=== PATIENT | male | born 1980 | race Caucasian/White ===

== ENCOUNTER → 2017-11-21 | Day surgery (SDC) | payer BC ==
[~2017-11-21] MED LIST: ALPRAZolam 0.5 MG TAB PO ONE; HYDROmorphone 2 MG/ML 1 ML SYRINGE IVP PRN
[2017-11-21 09:27] VITALS: RESP 20; TEMP 97.6
[2017-11-21 09:34] LABS: Mean Platelet Volume 8.1; Platelet Count 228 k/uL (150-450)
[2017-11-21 09:52] LABS: INR 1.1 (<1.2); Partial Thromboplastin Time 23.1 sec (22.0-30.0); Prothrombin Time 10.3 sec (9.0-12.0)
[2017-11-21 10:34] VITALS: PULSE 71
--- NOTE | 2017-11-21 11:07 | US ---
EXAMINATION TYPE: US biopsy liver DATE OF EXAM: 11/21/2017 HISTORY: Elevated liver function tests. PROCEDURE: Maximal barrier technique was utilized. After informed consent, the skin overlying a suit able path to the liver was localized using ultrasound and the right lobe, the skin was prepped and d raped. Ultrasound was utilized with sterile technique. Lidocaine was used for local anesthesia. A sk in tr made with a scalpel. Under direct ultrasound guidance, an 18-gauge needle was advanced into the right lobe of the liver and core biopsy obtained. Hemostasis was achieved. There was no immedia te complication and patient remained in stable condition. Specimen submitted in formalin to Patholog y. IMPRESSION: STATUS POST ULTRASOUND GUIDED CORE BIOPSY OF THE RIGHT LOBE OF THE LIVER, PATHOLOGY PENDI NG. PERFORMED BY THE UNDERSIGNED.
[2017-11-21 15:56] VITALS: BP 107/60
== END ==
LOC: RADPROMAIN 09:05
PROVIDERS: ATTEND Internal Medicine Gastroenterology
DX: E83.110 Hereditary hemochromatosis (principal)
CPT/HCPCS: 36415; 47000; 76942; 85049; 85610; 85730; 88307; 88313

== ENCOUNTER → 2018-09-19 | Outpatient (CLI) | payer BC ==
--- NOTE | 2018-09-19 15:48 | CT ---
CT brain w con HISTORY: Migraine headaches Helical acquisition obtained through the brain following 100 cc Isovue-300 IV. There is no hemorrhage or hydrocephalus. No abnormal enhancement. Brain density is normal. Calvarium is intact. Paranasal sinuses are remarkable for possible mucus retention cyst in the right maxillary sinus, and mastoid air cells as visualized are normal. IMPRESSION: Normal contrast-enhanced brain CT.
== END | disposition home or self-care (01) ==
LOC: RADCTMAIN 14:43
PROVIDERS: ATTEND Nurse Practitioner Adult Health
DX: G43.909 Migraine, unspecified, not intractable, without status migrainosus (principal)
CPT/HCPCS: 70460; Q9967

== ENCOUNTER → 2018-09-20 | Outpatient (CLI) | payer BC ==
--- NOTE | 2018-09-20 16:03 | CT ---
EXAMINATION TYPE: CT angio COW [place] DATE OF EXAM: 09/20/2018 COMPARISON: None. HISTORY: [facility] x3 weeks CT DLP: 1106 mGycm Automated Exposure Control for Dose Reduction was Utilized. TECHNIQUE: CTA scan of the head is performed with IV contrast.,patient injected with 100 mL of Isovue 370. Three-D reconstructed images are created on independent workstation. FINDINGS: There is codominant vertebral basilar system. Vertebral arteries are patent to the basilar junction. There is no significant focal stenosis or aneurysmal change in posterior circulation. There is patent left posterior communicating artery. There is hypoplastic right posterior communicating ar renan. Images of the anterior circulation show patent anterior cerebral artery. There is no significant foca l stenosis or aneurysmal change identified IMPRESSION: No aneurysmal change at level of [place].
== END | disposition home or self-care (01) ==
LOC: RADCTMAIN 15:22
PROVIDERS: ATTEND Nurse Practitioner Adult Health
DX: G43.909 Migraine, unspecified, not intractable, without status migrainosus (principal)
CPT/HCPCS: 70496; Q9967

== ENCOUNTER → 2019-02-13 | Outpatient (CLI) | payer BC ==
[~2019-02-13] MED LIST changes: -ALPRAZolam 0.5 MG TAB PO ONE; -HYDROmorphone 2 MG/ML 1 ML SYRINGE IVP PRN; +SODIUM CHLORIDE 0.9% 500 ML 500 ML in EMPTY BAG 1 BAG IV PRN
[2019-02-13 13:15] VITALS: RESP 16; TEMP 98
[2019-02-13 13:48] LABS: HCT 44.6 % (39.0-53.0); HGB 15.5 gm/dL (13.0-17.5); MCH 31.8 pg (25.0-35.0); MCHC 34.7 g/dL (31.0-37.0); MCV 91.8 fL (80.0-100.0); Mean Platelet Volume 7.6; Platelet Count 218 k/uL (150-450); RBC 4.86 m/uL (4.30-5.90); RDW 13.6 % (11.5-15.5); WBC 4.9 k/uL (3.8-10.6)
[2019-02-13 14:27] VITALS: BP 128/86; PULSE 79
[2019-02-13 19:33] LABS: Iron Saturation 19.81 (15.00-50.00)
== END ==
LOC: PROCWHC3 13:01
PROVIDERS: ATTEND Internal Medicine Gastroenterology
DX: E83.110 Hereditary hemochromatosis (principal)
CPT/HCPCS: 36415; 82728; 83540; 83550; 85027; 99195

== ENCOUNTER → 2019-08-23 | Outpatient (CLI) | payer BC ==
[2019-08-23 14:12] VITALS: RESP 16; TEMP 98.4
[2019-08-23 14:35] LABS: HCT 45.2 % (39.0-53.0); HGB 15.5 gm/dL (13.0-17.5); MCH 32.2 pg (25.0-35.0); MCHC 34.3 g/dL (31.0-37.0); Mean Platelet Volume 7.2; Platelet Count 217 k/uL (150-450); RBC 4.81 m/uL (4.30-5.90); RDW 13.3 % (11.5-15.5); WBC 7.3 k/uL (3.8-10.6)
[2019-08-23 15:10] VITALS: BP 123/75; PULSE 90
[2019-08-23 19:00] LABS: Iron Saturation 25.25 (15.00-50.00)
[2019-08-23 19:08] LABS: Ferritin 31.7 ng/mL (22.0-322.0)
== END | disposition home or self-care (01) ==
LOC: PROCWHC3 13:56
PROVIDERS: ATTEND Internal Medicine Gastroenterology
DX: E83.110 Hereditary hemochromatosis (principal)
CPT/HCPCS: 36415; 82728; 83540; 83550; 85027; 99195

== ENCOUNTER → 2019-10-16 | Outpatient (CLI) | payer BC ==
[2019-10-16 13:58] VITALS: BP 154/98; PULSE 84; RESP 18; TEMP 97.4
[2019-10-16 14:20] LABS: HCT 42.4 % (39.0-53.0); HGB 15.1 gm/dL (13.0-17.5); MCHC 35.5 g/dL (31.0-37.0); MCV 92.8 fL (80.0-100.0); Mean Platelet Volume 6.6; Platelet Count 224 k/uL (150-450); RBC 4.57 m/uL (4.30-5.90); RDW 12.8 % (11.5-15.5); WBC 11.7 k/uL (3.8-10.6)
[2019-10-16 23:36] LABS: % Iron Saturation 28.43 (15.00-50.00)
== END | disposition home or self-care (01) ==
LOC: PROCWHC3 13:38
PROVIDERS: ATTEND Internal Medicine Gastroenterology
DX: E83.110 Hereditary hemochromatosis (principal)
CPT/HCPCS: 36415; 82728; 83540; 83550; 85027; 99195

== ENCOUNTER → 2020-04-11 | Outpatient (CLI) | payer BC ==
[2020-04-11 09:55] VITALS: RESP 18; TEMP 97.8
[2020-04-11 10:09] LABS: HCT 47.1 % (39.0-53.0); HGB 16.8 gm/dL (13.0-17.5); MCH 32.4 pg (25.0-35.0); MCHC 35.7 g/dL (31.0-37.0); MCV 90.8 fL (80.0-100.0); Platelet Count 210 k/uL (150-450); RBC 5.19 m/uL (4.30-5.90); RDW 13.8 % (11.5-15.5); WBC 5.6 k/uL (3.8-10.6)
[2020-04-11 10:44] VITALS: BP 135/95; PULSE 84
== END | disposition home or self-care (01) ==
LOC: PROCWHC3 09:32
PROVIDERS: ATTEND Physician Assistant
DX: E83.110 Hereditary hemochromatosis (principal)
CPT/HCPCS: 36415; 85027; 99195

== ENCOUNTER → 2020-07-04 | Outpatient (CLI) | payer BC ==
[2020-07-04 08:01] LABS: Basophils % (A) 1 %; Eosinophils # (A) 0.2 k/uL (0-0.7); Eosinophils % (A) 3 %; HCT 47.7 % (39.0-53.0); HGB 16.3 gm/dL (13.0-17.5); Lymphocytes # (A) 1.6 k/uL (1.0-4.8); Lymphocytes % (A) 31 %; MCH 31.9 pg (25.0-35.0); MCHC 34.3 g/dL (31.0-37.0); Mean Platelet Volume 8.1; Monocytes # (A) 0.2 k/uL (0-1.0); Monocytes % (A) 4 %; Neutrophils # (A) 2.9 k/uL (1.3-7.7); Neutrophils % (A) 59 %; Platelet Count 200 k/uL (150-450); RBC 5.13 m/uL (4.30-5.90); RDW 12.9 % (11.5-15.5)
[2020-07-04 08:03] VITALS: BP 166/92; PULSE 73; RESP 16; TEMP 97.8
[2020-07-04 11:26] LABS: % Iron Saturation 34.17 (15.00-50.00)
[2020-07-04 11:33] LABS: Ferritin 26.6 ng/mL (22.0-322.0)
== END | disposition home or self-care (01) ==
LOC: PROCWHC3 07:40
PROVIDERS: ATTEND Physician Assistant
DX: E83.110 Hereditary hemochromatosis (principal)
CPT/HCPCS: 36415; 82728; 83540; 83550; 85025; 99195

== ENCOUNTER → 2020-12-24 | Outpatient (CLI) | payer BC, OTHER ==
[2020-12-24 09:25] VITALS: PULSE 68; RESP 16; TEMP 97.6
[2020-12-24 09:33] LABS: HCT 47.5 % (39.0-53.0); HGB 16.6 gm/dL (13.0-17.5); MCH 33.3 pg (25.0-35.0); MCV 95.1 fL (80.0-100.0); Mean Platelet Volume 7.9; Platelet Count 168 k/uL (150-450); RBC 4.99 m/uL (4.30-5.90); RDW 13.5 % (11.5-15.5); WBC 5.3 k/uL (3.8-10.6)
[2020-12-24 10:11] VITALS: BP 125/91
[2020-12-24 15:20] LABS: % Iron Saturation 50.8 (15.00-50.00)
[2020-12-24 15:29] LABS: Ferritin 43.5 ng/mL (22.0-322.0)
== END | disposition home or self-care (01) ==
LOC: PROCWHC3 09:05
PROVIDERS: ATTEND Internal Medicine Gastroenterology
DX: E83.110 Hereditary hemochromatosis (principal)
CPT/HCPCS: 36415; 82728; 83540; 83550; 85027; 99195

== ENCOUNTER → 2021-03-10 | Outpatient (CLI) | payer OTHER ==
[2021-03-10 14:45] LABS: Basophils % (A) 0 %; Eosinophils # (A) 0.1 k/uL (0-0.7); Eosinophils % (A) 2 %; HCT 46.3 % (39.0-53.0); HGB 16.2 gm/dL (13.0-17.5); Lymphocytes # (A) 1.2 k/uL (1.0-4.8); Lymphocytes % (A) 22 %; MCH 33.7 pg (25.0-35.0); MCV 96.4 fL (80.0-100.0); Monocytes # (A) 0.3 k/uL (0-1.0); Monocytes % (A) 5 %; Neutrophils # (A) 3.9 k/uL (1.3-7.7); Neutrophils % (A) 70 %; Platelet Count 179 k/uL (150-450); RDW 12.3 % (11.5-15.5); WBC 5.6 k/uL (3.8-10.6)
[2021-03-10 14:53] LABS: ALT 40 U/L (4-49); AST 38 U/L (17-59); African American GFR (CKD) >90 (>60 ml/min/1.73 sqM); Albumin 4.4 g/dL (3.5-5.0); Albumin/Globulin Ratio 1.8; Alkaline Phosphatase 60 U/L (38-126); Anion Gap 5 mmol/L; Blood Urea Nitrogen 16 mg/dL (9-20); Calcium 9.4 mg/dL (8.4-10.2); Carbon Dioxide 28 mmol/L (22-30); Chloride 107 mmol/L (98-107); Globulin 2.5 g/dL; Glucose 91 mg/dL (74-99); Non-African American GFR(CKD) >90 (>60 ml/min/1.73 sqM); Potassium 4.2 mmol/L (3.5-5.1); Sodium 140 mmol/L (137-145); Total Bilirubin 0.6 mg/dL (0.2-1.3); Total Protein 6.9 g/dL (6.3-8.2)
[2021-03-10 15:14] LABS: Creatine Kinase MB 6.5 ng/mL (0.0-2.4); Troponin I <0.012 ng/mL (0.000-0.034)
[2021-03-10 16:04] LABS: Erythrocyte Sedimentation Rate 1 mm/hr (0-15)
[2021-03-11 14:47] LABS: % Iron Saturation 65.36 (15.00-50.00); Iron 217 ug/dL (65-175); Total Iron Binding Capacity 332 ug/dL (228-460)
[2021-03-11 14:49] LABS: Ferritin 32.9 ng/mL (22.0-322.0)
== END | disposition home or self-care (01) ==
LOC: LABWHC1 14:00
PROVIDERS: ATTEND Nurse Practitioner Adult Health
DX: R07.9 Chest pain, unspecified (principal)
CPT/HCPCS: 36415; 80053; 82553; 82728; 83540; 83550; 84484; 85025; 85652; 86141

== ENCOUNTER → 2021-04-08 | Outpatient (CLI) | payer OTHER ==
--- NOTE | 2021-04-09 20:01 | ECHOF ---
Referral Reason:R00.2 Palpitations MEASUREMENTS -------- HEIGHT: 182.9 cm WEIGHT: 90.7 kg BP: 132/82 IVSd: 1.2 cm (0.6 - 1.1) LVIDd: 4.4 cm (3.9 - 5.3) LVPWd: 1.1 cm (0.6 - 1.1) EDV(Teich): 88 ml IVSs: 1.8 cm LVIDs: 2.9 cm LVPWs: 1.6 cm %IVS Thck: 53 % ESV(Teich): 33 ml EF(Teich): 62 % %FS: 33 % SV(Teich): 55 ml LA Diam: 3.0 cm (2.7 - 3.8) RVIDd: 2.9 cm (< 3.3) LALs A4C: 5.2 cm LAAs A4C: 17.2 cm LAESV A-L A4C: 49 ml LAESV MOD A4C: 47 ml LALs A2C: 5.7 cm LAAs A2C: 18.7 cm LAESV A-L A2C: 52 ml LAESV MOD A2C: 49 ml LAESV(A-L): 53 ml LAESV Index (A-L): 24.82 ml/m Ao Diam: 3.9 cm (2.0 - 3.7) AV Cusp: 2.7 cm (1.5 - 2.6) EPSS: 0.6 cm MV E Maxim: 1.00 m/s MV DecT: 237 ms MV Dec [place]: 4.2 m/s MV A Maxim: 0.83 m/s MV E/A Ratio: 1.21 MV PHT: 69 ms AV Vmax: 1.31 m/s AV maxP.82 mmHg TR Vmax: 2.64 m/s TR maxP.77 mmHg RAP: 5.00 mmHg RVSP: 32.77 mmHg MV EF SLOPE: 141.62 mm/s (70 - 150) MV EXCURSION: 27.03 mm (> 18.000) FINDINGS -------- Sinus rhythm. This was a technically good study. The left ventricular size is normal. There is borderline concentric left ventricular hypertrophy. Overall left ventricular systolic function is normal with, an EF between 60 - 65 %. The right ventricle is normal in size. Normal LA size by volume 22+/-6 ml/m2. The right atrium is normal in size. Interatrial and interventricular septum intact. The aortic valve is trileaflet and appears structurally normal. The mitral valve is normal. Mild tricuspid regurgitation present. Right ventricular systolic pressure is normal at < 35 mmHg. Trace/mild (physiologic) pulmonic regurgitation. The aortic root is dilated measuring 3.9cm. Normal inferior vena cava with normal inspiratory collapse consistent with estimated right atrial pre ssure of 5 mmHg. The inferior vena cava is mildly dilated. There is no pericardial effusion. CONCLUSIONS -------- 1. The left ventricular size is normal. 2. There is borderline concentric left ventricular hypertrophy. 3. Overall left ventricular systolic function is normal with, an EF between 60 - 65 %. 4. The aortic valve is trileaflet and appears structurally normal. 5. Mild tricuspid regurgitation present. 6. Trace/mild (physiologic) pulmonic regurgitation. 7. The aortic root is dilated measuring 3.9cm. 8. Normal inferior vena cava with normal inspiratory collapse consistent with estimated right atrial pressure of 5 mmHg. 9. The inferior vena cava is mildly dilated. 10. There is no pericardial effusion. [employer] CONSULTANT: Ryann Medina RDCS
== END | disposition home or self-care (01) ==
LOC: RADECHMAIN 13:40
PROVIDERS: ATTEND Family Medicine
DX: I49.8 Other specified cardiac arrhythmias (principal); I51.7 Cardiomegaly; I36.1 Nonrheumatic tricuspid (valve) insufficiency; I37.1 Nonrheumatic pulmonary valve insufficiency; I87.8 Other specified disorders of veins
CPT/HCPCS: 93306